=== PATIENT | female | born 1980 | race Caucasian/White ===

== ENCOUNTER 2018-05-17 22:41 | Emergency (ER) | payer OTHER ==
[~2018-05-17] VITALS: Ht 162.6 cm; Wt 74.8 kg
[2018-05-17] MEDS ORDERED: NOHOMEMEDICATIONS (23:01)
[2018-05-17 23:09] LABS: URINE BILIRUBIN NEGATIVE (Negative); URINE BLOOD NEGATIVE (Negative); URINE CLARITY CLEAR; URINE COLOR YELLOW; URINE GLUCOSE-RANDOM* NEGATIVE (Negative); URINE KETONES TRACE (Negative); URINE LEUKOCYTES NEGATIVE (Negative); URINE NITRITE NEGATIVE (Negative); URINE PROTEIN (DIPSTICK) NEGATIVE (Negative); URINE UROBILINOGEN 0.2 E.U./dl (0.2-1.0)
[2018-05-18 01:10] LABS: ABSOLUTE NEUTROPHILS 5.5 thou/uL (1.4-8.2); BASOPHILS 0.6 % (0.0-2.0); EOSINOPHILS 1.1 % (0.0-3.0); HEMATOCRIT 39.9 % (37.0-47.0); HEMOGLOBIN 13.8 gm/dL (12.0-15.0); LYMPHOCYTES 23.4 % (24.0-44.0); MCH 31.6 pg (26.0-34.0); MCHC 34.6 g/dL (28.0-37.0); MCV 91.3 fL (80.0-100.0); MONOCYTES 6.4 % (1.0-8.0); PLATELET COUNT 180 thou/uL (150-400); POLYS 68.5 % (36.0-66.0); RBC 4.37 mil/uL (4.20-5.00); RDW 13.3 % (10.5-14.5)
[2018-05-18 01:12] LABS: CREATININE 0.8 mg/dL (0.6-1.0); POTASSIUM 3.7 mmol/L (3.5-5.1)
[2018-05-18 01:18] LABS: ALBUMIN 4.1 g/dL (3.4-5.0); DIRECT BILIRUBIN 0.1 mg/dL (<0.1-0.3); TOTAL BILIRUBIN 0.5 mg/dL (<0.1-1.0); TOTAL PROTEIN 8.4 g/dL (6.4-8.2)
[2018-05-18] MEDS ORDERED: IBUPROFEN 400400 M2 PO (05:51)
[2018-05-18 06:00] VITALS: BP 94/49
--- NOTE | 2018-05-18 09:11 | EKG ---
[place] [address] [facility] [place] [address] ELECTROCARDIOGRAM REPORT Name: ANNY GARCIA Room #: DEP [facility] [id number] ������������������ Admission: 05/17/18 ������������������ Attend Phys: Discharge: 05/18/18 ������������������ Date of : 76 Report #: [id number] ����������������������������������������������������������������� [id number] THIS REPORT FOR: //name// 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 : 1980 Requested By: Samantha Li Order Number: [id number] MD: Haja Barroso Measurements Intervals [place] Rate: 50 P: 54 MI: 133 QRS: 55 QRSD: 101 T: 44 QT: 460 QTc: 420 Interpretive Statements Sinus bradycardia Otherwise normal tracing No previous ECG available for comparison Electronically Signed On 05-18-2018 9:11:20 CDT by Haja Barroso [email or web address] ��������������������������������������������� <ELECTRONICALLY SIGNED> ���������������������������������������� By: Haja Barroso MD, [facility] ��������������������������������������������� 05/18/18 0911 0053 0053 Haja Barroso MD, FACC /EPI
== END 2018-05-18 06:00 | disposition home or self-care (01) ==
LOC: ER 22:41
PROVIDERS: Emergency Medicine; Student in an Organized Health Care Education/Training Program
DX: M54.5 Low back pain (principal); R10.31 Right lower quadrant pain; Z90.710 Acquired absence of both cervix and uterus; Z85.41 Personal history of malignant neoplasm of cervix uteri